=== PATIENT | male | born 1965 | race Caucasian/White ===

== ENCOUNTER 2019-07-05 18:07 | Inpatient (IN) | payer OTHER ==
[~2019-07-05] VITALS: Ht 185.4 cm; Wt 74.8 kg
[2019-07-05 18:08] VITALS: BP 128/74
[2019-07-05 18:37] LABS: HEMATOCRIT 43.8 % (42.0-52.0); HEMOGLOBIN 15.1 gm/dL (14.0-18.0); MCH 32.5 pg (26.0-34.0); MCHC 34.4 g/dL (28.0-37.0); MCV 94.5 fL (80.0-100.0); PLATELET COUNT 191 thou/uL (150-400); RBC 4.63 mil/uL (4.50-6.00); RDW 14.1 % (10.5-14.5); WBC 5.8 thou/uL (4.0-11.0)
[2019-07-05 18:41] LABS: ANION GAP 8 mmol/L (7-16); BUN 8 mg/dL (7-18); CALCIUM 8.6 mg/dL (8.5-10.1); CHLORIDE 105 mmol/L (98-107); CO2 26 mmol/L (21-32); CREATININE 0.9 mg/dL (0.7-1.3); GLUCOSE 97 mg/dL (74-106); POTASSIUM 3.3 mmol/L (3.5-5.1); SODIUM 139 mmol/L (136-145)
[2019-07-05 18:52] LABS: ALBUMIN 3.4 g/dL (3.4-5.0); DIRECT BILIRUBIN < 0.1 mg/dL (<0.1-0.3); MAGNESIUM 1.8 mg/dL (1.8-2.4); SGOT 18 U/L (15-37); SGPT 10 U/L (30-65); TOTAL BILIRUBIN 0.6 mg/dL (<0.1-1.0); TOTAL PROTEIN 7.3 g/dL (6.4-8.2); TROPONIN-I <0.06 ng/mL (<0.06)
[2019-07-05 18:53] LABS: APTT 27.1 Seconds (24.5-32.8); INR 1.1; PROTIME 11.3 Seconds (9.3-11.4)
[2019-07-05 19:13] LABS: ABSOLUTE NEUTROPHILS 4.4 thou/uL (1.4-8.2)
[2019-07-05 19:14] LABS: PLATELET ESTIMATE NORMAL
[2019-07-05 20:31] LABS: URINE BILIRUBIN NEGATIVE (Negative); URINE BLOOD TRACE (Negative); URINE CLARITY CLEAR; URINE COLOR YELLOW; URINE GLUCOSE-RANDOM* NEGATIVE (Negative); URINE KETONES NEGATIVE (Negative); URINE LEUKOCYTES-REFLEX NEGATIVE (Negative); URINE NITRITE-REFLEX NEGATIVE (Negative); URINE PROTEIN (DIPSTICK) 3+ (Negative); URINE SPECIFIC GRAVITY >= 1.030 (1.005-1.035)
[2019-07-05 20:39] LABS: AMP/METHAMP Negative (Negative); BARBITURATES Negative (Negative); BENZODIAZEPINES Negative (Negative); COCAINE Negative (Negative); METHADONE Negative (Negative); OPIATES Negative (Negative); PCP Negative (Negative)
[2019-07-05 20:43] LABS: BACTERIA-REFLEX None Seen /HPF (None Seen); CRYSTALS None Seen /LPF (None Seen); FINE GRANULAR CASTS 0-3 Few /LPF (None Seen); HYALINE CASTS 0-3 Few /LPF (None Seen); MUCUS >6 Heavy strn/LPF (None Seen); SQUAMOUS 0-3 Few /LPF (0-3); URINE RBC 0-2 Rare /HPF (0-2); URINE WBC-REFLEX 0-5 Rare /HPF (0-5)
[2019-07-06] VITALS (47 sets, daily range): BP systolic 54–144; BP diastolic 16–98
[2019-07-06 03:52] LABS: BE(vivo) -4.3 mmol/L (-2 to +3); HCO3 18.9 mmol/L (22.0-26.0); PCO2 30.3 mmHg (35.0-45.0); PO2 64.8 mmHg (80.0-100.0); pH 7.412 (7.360-7.450); sO2 93.2 % (92.0-98.0)
[2019-07-06 04:36] LABS: HEMATOCRIT 44.5 % (42.0-52.0); HEMOGLOBIN 15.1 gm/dL (14.0-18.0); MCH 32.6 pg (26.0-34.0); MCHC 33.9 g/dL (28.0-37.0); MCV 96.3 fL (80.0-100.0); RBC 4.63 mil/uL (4.50-6.00); RDW 14.2 % (10.5-14.5); WBC 14.2 thou/uL (4.0-11.0)
[2019-07-06 04:47] LABS: CHOLESTEROL 93 mg/dL (<200); HDL CHOLESTEROL 18 mg/dL (>40); LDL CHOLESTEROL 60 mg/dL (<100); SERUM ASSESSMENT Clear; TC:HDL 5.2 Ratio (Not establshd); TRIGLYCERIDE 79 mg/dL (<150); VLDL 16 mg/dL (<40)
--- NOTE | 2019-07-06 07:53 | EKG ---
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 : 1965 Requested By: Reyna Trejo Order Number: [id number] MD: Parag Osborn Measurements Intervals [place] Rate: 82 P: CT: QRS: 72 QRSD: 102 T: 128 QT: 392 QTc: 458 Interpretive Statements Sinus rhythm with frequent premature ventricular complexes Anterolateral myocardial infarction, age indeterminate Compared to ECG 05/30/2008 07:05:56 Ventricular premature complex(es) now present Evolutionary changes of an anterolateral infarct Electronically Signed On 07-06-2019 7:52:54 CDT by Parag Osborn [email or web address] <ELECTRONICALLY SIGNED> By: Parag Osborn MD, [facility] 07/06/19 0752 1814 1814 Parag Osborn MD, [facility] /EPI
--- NOTE | 2019-07-06 08:01 | NUR ---
PATIENT ADMITTED FROM ED DEPARTMENT, ALERT YET FORGETFUL AT TIMES. NO COMPLAINTS OF PAIN. SINUS RHYTHM WITH PAC/PVC ON DIE TRIMMER. ON 6L NASAL CANNULA, WHICH IS HOME BASELINE. WOUNDS TO LOWER EXTREMITIES, PHOTOS TAKEN. PATIENT NPO. AMIODARONE AND LEVOFED DRIP FOR SUPPORT DUE TO DECREASED BLOOD PRESSURE. PATIENT HAD AN EPISODE AT 0300 WITH (NAUSEA/DIAPHORESIS/HYPOTENTION), NURSE PRACTITIONER NOTIFIED WITH NEW ORDERS. NO SIGNS OF ACUTE DISTRESS NOTED AT THIS TIME. WILL CONTINUE TO MONITOR.
--- NOTE | 2019-07-06 09:51 | 2DMMODE ---
[facility] [address] [place] [address] 2 D/M-MODE ECHOCARDIOGRAM Name: LEVAR TIERNEY Room #: 238-P ADM IN M.R.#: [id number] Admission: 07/06/19 Attend Phys: Rd Baumann MD Discharge: Date of : 67 Date of Service: 07/06/19 0951 Report #: [id number] THIS REPORT FOR: //name// APPROVED REPORT Study performed: 07/06/2019 08:44:11 EXAM: Comprehensive 2D, Doppler, and color-flow Echocardiogram Patient Location: ICU Room #: 238 Status: routine BSA: 1.96 HR: 75 bpm BP: 121/69 mmHg Rhythm: Pacemaker Other Information Study Quality: Good Indications ICD: Diabetes Hypertension/HDD 2D Dimensions RVDd: 49.98 mm IVSd: 9.83 (7-11mm) LVOT Diam: 24.87 (18-24mm) LVDd: 60.15 mm PWd: 10.46 (7-11mm) Ascending Ao: 33.62 (22-36mm) LVDs: 54.55 (25-40mm) Aortic Root: 33.98 mm IVC: 29.00 mm Volumes Left Atrial Volume (Systole) Single Plane 4CH: 55.51 mL Single Plane 2CH: 87.21 mL LA ESV Index: 41.00 mL/m2 Aortic Valve AoV Peak Geovani.: 0.90 m/s AO Peak Gr.: 3.21 mmHg LVOT Max P.99 mmHg LVOT Max V: 0.71 m/s GAMA Vmax: 3.82 cm2 Mitral Valve E/A Ratio: 0.7 [facility] [address] [place] [address] 2 D/M-MODE ECHOCARDIOGRAM Name: LEVAR TIERNEY Room #: 238-[facility] IN [facility].#: [id number] Admission: 07/06/19 Attend Phys: Rd Baumann MD Discharge: Date of : 67 Date of Service: 07/06/19 0951 Report #: [id number] MV Decel. Time: 132.88 ms MV E Max Geovani.: 0.54 m/s MV A Geovani.: 0.74 m/s MV PHT: 38.53 ms IVRT: 179.93 ms Pulmonary Valve PV Peak Geovani.: 0.66 m/s PV Peak Gr.: 1.75 mmHg Tricuspid Valve TR Peak Geovani.: 2.87 m/s TR Peak Gr.: 33.04 mmHg PA Pressure: 48.00 mmHg Left Ventricle Left ventricle is dilated. There is severe global hypokinesis of the left ventricle. There is normal left ventricular wall thickness. Left ventricular ejection fraction is severely decreased. LVEF is 15-20%. The left ventricular diastolic function is abnormal. Right Ventricle Right ventricle is dilated. Right ventricle is hypokinetic. Atria Left atrium is dilated. Right atrium is dilated. Aortic Valve The aortic valve is normal in structure. No aortic regurgitation is present. There is no aortic valvular stenosis. Mitral Valve The mitral valve is normal in structure. Mild mitral regurgitation. No evidence of mitral valve stenosis. Tricuspid Valve The tricuspid valve is normal in structure. There is mild tricuspid regurgitation. Estimated PAP 48 mmHg. There is moderate pulmonary hypertension. Pulmonic Valve The pulmonary valve is normal in structure. There is no pulmonic valvular regurgitation. Great Vessels The aortic root is normal in size. The inferior vena cava is dilated [facility] [address] [place] [address] 2 D/M-MODE ECHOCARDIOGRAM Name: LEVAR TIERNEY Room #: 238-P ADM IN M.R.#: [id number] Admission: 07/06/19 Attend Phys: Rd Baumann MD Discharge: Date of : 67 Date of Service: 07/06/19 0951 Report #: [id number] with no inspiratory collapse. Pericardium There is no pericardial effusion. <Conclusion> Left ventricle is dilated. Left ventricular ejection fraction is severely decreased. LVEF is 15-20%. There is severe global hypokinesis of the left ventricle. Right ventricle is dilated. Right ventricle is hypokinetic. Left atrium is dilated. Right atrium is dilated. The aortic valve is normal in structure. The mitral valve is normal in structure. Mild mitral regurgitation. The tricuspid valve is normal in structure. There is mild tricuspid regurgitation. Estimated PAP 48 mmHg. There is moderate pulmonary hypertension. The pulmonary valve is normal in structure. There is no pericardial effusion. <ELECTRONICALLY SIGNED> By: Angelo Bradford MD 07/06/1950 Angelo Bradford MD /INF
[2019-07-06 11:04] LABS: CALCIUM 8.5 mg/dL (8.5-10.1); MAGNESIUM 1.7 mg/dL (1.8-2.4); POTASSIUM 3.5 mmol/L (3.5-5.1); TROPONIN-I 0.1 ng/mL (<0.06)
[2019-07-07] VITALS (13 sets, daily range): BP systolic 106–146; BP diastolic 48–89
[2019-07-07 05:15] LABS: HEMATOCRIT 39.9 % (42.0-52.0); HEMOGLOBIN 13.7 gm/dL (14.0-18.0); MCH 32.5 pg (26.0-34.0); MCHC 34.3 g/dL (28.0-37.0); MCV 94.8 fL (80.0-100.0); RBC 4.21 mil/uL (4.50-6.00); RDW 13.9 % (10.5-14.5)
[2019-07-07 05:26] LABS: CALCIUM 8.3 mg/dL (8.5-10.1); MAGNESIUM 1.5 mg/dL (1.8-2.4)
[2019-07-07 05:32] LABS: PLATELET COUNT 153 thou/uL (150-400)
--- NOTE | 2019-07-07 05:56 | NUR ---
PATIENTS CARES WERE ASSUMED AT APPROX 2110 DUE TO HE WAS A TRANSFER OUT OF ICU. PATIENT WAS ASSESSED AND MEDS WERE PASSED. PATIENTS ONLY C/O UNABLE TO SLEEP AND HE IS GOING HOME TOMORROW 07/07/19. CONSULT PLACED FOR THE DRY CELL SEALER TO HELP HIM GET HIS MEDICATIONS AND O2. PATIENT REMAINS ON 6L NC. HOURLY ROUNDING WAS DONE. THE BED IS IN A LOW AND LOCKED POSITION
[2019-07-07 06:58] LABS: ABSOLUTE NEUTROPHILS 6.1 thou/uL (1.4-8.2)
[2019-07-07 06:59] LABS: PLATELET ESTIMATE NORMAL
[2019-07-07 16:14] LABS: CALCIUM 8.1 mg/dL (8.5-10.1); CREATININE 1.1 mg/dL (0.7-1.3); MAGNESIUM 1.6 mg/dL (1.8-2.4); POTASSIUM 3.6 mmol/L (3.5-5.1); TOTAL BILIRUBIN 0.9 mg/dL (<0.1-1.0); TOTAL PROTEIN 6.9 g/dL (6.4-8.2)
--- NOTE | 2019-07-07 16:56 | CATHLAB ---
[facility] [address] [place] [address] INVASIVE PROCEDURE REPORT Name: LEVAR TIERNEY Room #: 211-P [facility] IN ..#: [id number] Admission: 07/05/19 Attend Phys: Rd Baumann MD Discharge: Date of : 67 Date of Service: 07/07/19 1656 Report #: [id number] THIS REPORT FOR: //name// APPROVED REPORT Study performed: 07/07/2019 10:37:46 Patient Details The patient is a 54 year-old male Event Personnel Amaury Gonzales Can Piler, Sandy Zarate RN, Pop Lopez RTR Scrub, Lavonne Colin RTR Monitor, Deonna Meyer RTR, CIGAR HEAD STRINGER Monitor, María Elena Huratdo RTR Scrub Procedures Performed Left Heart Cath w/or w/o Coronaries [id number] [facility] Indication Arrhythmia, The patient presented with multiple ventricular tachycardias episodes. Has a prior history of cardiomyopathy and GA. Risk Factors Peripheral Vascular Disease, Hypercholesterolemia, Coronary Artery DiseaseHypertension Previous Procedures/Diagnoses Previous PCI, Previous GA Procedure Narrative The Right Groin^ was infiltrated with 2% Lidocaine subcutaneous anesthesia. A PINNACLE 4FR Sheath #[id number] sheath was inserted into the RFA 4 fr^. Coronary angiography was performed using coronary diagnostic catheters. The right coronary system was accessed and visualized with a JR4 catheter. The left coronary system was accessed and visualized with a JL4 catheter. The left ventricle was accessed and visualized with a Pigtail catheter. Hemostasis was obtained with manual pressure following sheath removal without any complications. The patient tolerated the procedure well and there were no complications associated with the procedure. There was no hematoma. Intraoperative Conscious Sedation [facility] [address] [place] [address] INVASIVE PROCEDURE REPORT Name: LEVAR TIERNEY Room #: [facility] IN ..#: [id number] Admission: 07/05/19 Attend Phys: Rd Baumann MD Discharge: Date of : 67 Date of Service: 07/07/19 1656 Report #: [id number] Sedation start time: 1108 Case end Time: 1145 Fentanyl 50 mcg Versed 1 mg Fluoro Time: 3.28 minutes Dose: DAP 5147.80 cGycm2 646 mGy Contrast Type and Amount: Visipaque 90 ml Coronary Angiography The patient's coronary anatomy is co- dominant. Diagnostic Cath Left Main Large-caliber vessel, with no flow-limiting lesions. LAD This is a moderate size caliber vessel, traversing the anterior wall and wrapping around the apex. Circumflex This is a codominant vessel, with mild disease in the mid segment. There are 2 marginals originating off the distal left circumflex artery. OM1 There is a patent vessel, with no flow-limiting lesions. OM2 There is a patent vessel, with no flow-limiting lesions. Right Coronary There is moderate diffuse disease in the proximal segment, 40%. R PDA There is a stent in the proximal segment, patent with minimal restenosis. Ramus There is a stent in the proximal segment with a total occlusion, appears chronic. Left Ventriculography The left ventricle is moderately dilated in size with abnormal contractility. The left ventricular ejection fraction is estimated to be 15%. Hemodynamics The aortic pressure is 116/73 mmHg with a mean of 96 mmHg. The left ventricular pressure is 105/22 mmHg with a mean of mmHg. The left ventricular end diastolic pressure is 25 mmHg. Conclusion 1. Severe, dilated cardiomyopathy- probable mixed type. 2. 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 3. There is a patent stent in the PDA. [facility] [address] [place] [address] INVASIVE PROCEDURE REPORT Name: KELSYLEVARJORGE SOUZA Room #: 211-P [facility] IN M.R.#: [id number] Admission: 07/05/19 Attend Phys: Rd Baumann MD Discharge: Date of : 67 Date of Service: 07/07/191655 Report #: [id number] 4. Moderate disease in the RCA. 5. Recommend aggressive risk factor management. <ELECTRONICALLY SIGNED> By: Amaury Gonzales MD 07/07/191655 55 55 Amaury Gonzales MD /INF
--- NOTE | 2019-07-07 18:19 | NUR ---
PT CARE ASSUMED APPROX 0700. PT ALERT AND ORIENTED X4. DENIES PAIN AND SOA. VSS. HAD CARDIAC CATH THIS SHIFT WITHOUT INTERVENTION. RIGHT GROIN POST CATH SITE C/D/I AND FREE OF HEMATOMA. PT HAD AN EPISODE OF ASYMPTOMATIC VTACH THIS AM. NO OTHER EPISODES REPORTED TO THIS NURSE. AMIO GTT AT 1MG/MIN REMAINS TO POC AND PO AMIO ADDED. PT TOLERATING POC. POST CATH VSS. APPETITE GOOD. UP TO SIDE OF BED FOR MEALS. LEFT SIDED WEAKENESS IS SIGNIFICANT. NO TRANSFERS TO CHAIR PERFORMED FOR THIS REASON. POST CATH NS INFUSING AT THIS TIME. IV ABT REMAINS TO POC. LAC IV INFILTRATED WITH AMIO RUNNING. PIV DC'D BUT LAC RED AND SORE. PT REFUSED COLD THERAPY. AWARE. PIV SITE ROTATED X2. PT DENIES QUESTIONS REGARDING POC. INDEPENDENT IN THE BED. NO DISTRESS NOTED.
--- NOTE | 2019-07-07 18:33 | NUR ---
ASSUMED PT CARE AT 1030. PT A&O X4. FALL PRECAUTIONS IN PLACE. ASSESSMENT CHARTED. PT'S VITAL SIGNS ARE STABLE. PT STATED HE HAD ZERO OUT OF TEN PAIN. PT'S RIGHT GROIN SITE IS CLEAN, DRY, AND INTACT. NO HEMATOMA PRESENT. NO BLEEDING PRESENT. FAMLY VISITED WITH PT. FAMILY EDUCATED ON PT'S STATUS, PT COMMUNICATED UNDERSTANDING. PT RECIEVED 6 HRS OF NORMAL SALINE 100 MLS/HR. PT COMPLETED 6 HRS AT 1800. PT COMPLETED POST-CATH VITAL SIGNS AT 1515. ASSESSED PT'S GAIT. GAIT IS STABLE AND IS BALANCED.
[2019-07-08] VITALS (9 sets, daily range): BP systolic 98–129; BP diastolic 52–75
[2019-07-08 04:49] LABS: HEMATOCRIT 39.5 % (42.0-52.0); HEMOGLOBIN 13.6 gm/dL (14.0-18.0); MCH 32.9 pg (26.0-34.0); MCHC 34.4 g/dL (28.0-37.0); MCV 95.4 fL (80.0-100.0); RBC 4.14 mil/uL (4.50-6.00); WBC 10.1 thou/uL (4.0-11.0)
[2019-07-08 05:07] LABS: CALCIUM 8.3 mg/dL (8.5-10.1); CREATININE 0.9 mg/dL (0.7-1.3); MAGNESIUM 1.6 mg/dL (1.8-2.4); POTASSIUM 3.5 mmol/L (3.5-5.1)
--- NOTE | 2019-07-08 07:30 | NUR ---
ASSUE CARE 1900. PT/VITALS STABLE. DENIES PAIN. MODERATELY TOLERATES ACTIVTIY. ASSESSMENT CHARTED. PROGRESSING WELL WITH POC. PLAN IS TO CONTINUE WITH AMIO DRIP AND MONITOR HR AND RHYTHM. WILL CONTINUE TO MONITOR AND FOLLOW WITH POC.
[2019-07-08] MEDS ORDERED: COREG3.125 MG PO (10:56)
[2019-07-08] MEDS ORDERED: ASPIRIN325 PO (10:56)
[2019-07-08] MEDS ORDERED: PACERONE 200 M200 M1 PO (10:56)
--- NOTE | 2019-07-08 12:01 | NUR ---
FAXED FACE SHEET TO [employer] TO HELP WITH MEDICAID APPLICATION FOR SECONDARY INSURANCE. DCP TO FOLLOW.
--- NOTE | 2019-07-08 16:03 | NUR ---
Case opened to follow for dc planning. Possible dc home tomorrow per the care team. Roaster Operator visited with the pt at bedside and his exwife Amy via phone. He reports his ex and his adult son live with him and help care for him. He has a w/c at home with a ramped entrance. He has had home o2 in the past,but states [employer] picked it up a while ago. He is currently on 6liters which he reports was his baseline prior. He reports that he had medicaid in the past but it is not active anymore. He has not been able to afford his medications. He also has a new pcp Dr. Cliff Adhikari. He and Amy are asking for help with a ride home as their car is broken down, as well as medication assistance. Case discussed with the care team. The pt does not want to use [employer] again for o2. Referrals sent to [facility] [place] for o2 and PSYCHIATRICS for hh as they go to [place]. [facility] w/c van transport arranged for tomorrow with a 12:30pm pickup time. Should the pt's dc be canceled please call them to cancel [phone]. [facility] [place] is bringing a portable tank for the ride home. He will need to call them when he arrives home to setup his concentrator. [facility] can accept for hh f/u. Orders will need to be faxed to [phone] and the oncall nurse notified [phone]. His scripts are filled and vouchered by cm to facilitate dc. They are locked in the med room this afternoon per nursing. Pt's najera being dc'd today in anticipation of dc tomorrow. He is agreeable to the above noted arrangements. All parties updated.
--- NOTE | 2019-07-08 16:10 | NUR ---
FAXED REFERRAL TO [facility] FOR HOME O2 SPOKE WITH IVAN IN INTAKE SHE RECEIVED REFERRAL AND DCP TO FAX QUALIFYING O2 SAT ONCE AVAILABLE. AARON FROM [facility] IS BRINGING O2 TANK FOR PT TO DISCHARGE HOME WITH. DCP TO FOLLOW.
--- NOTE | 2019-07-08 17:22 | NUR ---
PT RA O2 SAT IS 84%. REQUIRING 5-6L PER NC AT THIS TIME TO KEEP O2 SATS ABOVE 92%
--- NOTE | 2019-07-08 17:58 | NUR ---
PT CARE ASSUMED APPROX 0700. PT ALERT AND ORIENTED X4. DENIES PAIN AND SOA. VSS. PT TO CHAIR FOR MOST OF DAY. TOLERATING. TRANSFERS MOD ASSIST X1. PIV TO UPPER RIGHT ARM INFILTRATED. AREA WHERE PIV INFILTRATED YESTERDAY TO RAC RED, WARM, SWOLLEN AND PAINFUL MORESO THAN YESTERDAY. DR CORDERO AND RADHA WATSON SALON DESIGNER NOTIFIED. PIV D/C'D AND AMIO WAS ROTATED TO SITE THAT WAS C/D/I. IV ABT REMAINS TO POC. AMIO STOPPED THIS EVENING. URINARY CATH REMOVED PER ORDER WITHOUT ISSUE. WILL MONITOR URINE OUTPUT. PT COMPLIANT WITH FLUID RESTRICTION. CASE MANAGEMENT ASSISTED PT IN OBTAINING MEDS AND HOME 02. MEDS LOCKED IN MED ROOM. WILL SUPPLY PT WITH THEM UPON DISCHARGE. THIS INFO WILL BE PASSED TO NOC NURSE TO REPORT TO DAY NURSE. RA SAT OBTAINED FOR O2 ORDERING PURPOSES (SEE PREVIOUS NOTE.) MAG REPLACED THIS SHIFT. WILL MONITOR LAB. NO DISTRESS NOTED.
--- NOTE | 2019-07-09 04:17 | NUR ---
Pt. rested quietly at short intervals during the night when checked on during frequent rounds. He c/o insomnia and prn benadryl given (see emar) with some relief noted. he offers no c/o pain. Voiding since najera catheter was re- moved. Bed alarm is on.
[2019-07-09 05:30] LABS: CALCIUM 8.4 mg/dL (8.5-10.1); CREATININE 0.9 mg/dL (0.7-1.3); MAGNESIUM 1.7 mg/dL (1.8-2.4); POTASSIUM 3.2 mmol/L (3.5-5.1)
[2019-07-09 05:36] VITALS: BP 117/64
[2019-07-09 08:31] VITALS: BP 117/73
[2019-07-09 11:44] VITALS: BP 94/58
[2019-07-09] MEDS ORDERED: MAGOX 400400 MG PO (12:01)
[2019-07-09] MEDS ORDERED: MELATONIN5 M1 PO (12:01)
[2019-07-09] MEDS ORDERED: CEFUROXIME500 MG PO (12:01)
[2019-07-09] MEDS ORDERED: POTASSIUM20 PO (12:01)
[2019-07-09] MEDS ORDERED: MUCINEX600 MG PO (12:01)
[2019-07-09] MEDS ORDERED: LASIX 40 MG TAB40 M1 PO (12:01)
[2019-07-09 12:24] VITALS: BP 101/59
--- NOTE | 2019-07-09 13:24 | NUR ---
PT CARE ASSUMED APPROX 0700. PT ALERT AND ORIENTED X4. DENIED PAIN AND SOA. VSS. HRR. PT DISCHARGED AT THIS TIME. PAPERWORK REVIEWED WITH PT BUT SPOUSE-CARL WAS EDUCATED OVER THE PHONE ON ALL MEDS & MED BOTTLES ARRIVING WITH THE PT BACK TO HER HOUSE, DIET, ACTIVITY, F/U APPTS, AND GENERAL POST HOSPITAL CARES. IT WAS ALSO REITERATED SOME OF THE EDUCATION THAT CASE MANAGEMENT HAS BEEN DOING SINCE PT ADMISSION. PT PICKED UP FROM ROOM BY MEDICAL TRANSPORTATION. O2 TANK AND ALL BELONGINGS TRANSPORTED WITH PT. IV OUT, TELE BOX OFF. NO DISTRESS NOTED.
== END 2019-07-09 13:34 | disposition home health service (06) | DRG 286 ==
LOC: ER 18:07 → EROBS 22:55 → 2N 22:55 → ER 07-06 00:09 → ICU 07-06 00:09 → EROBS 07-06 00:09 → ICU 07-06 01:01 → EROBS 07-06 01:05 → ICU 07-06 01:05 → 2N 07-06 20:45 → ICU 07-06 20:45 → 2N 07-09 13:34
PROVIDERS: Emergency Medicine; Internal Medicine Cardiovascular Disease; Nurse Practitioner; Nurse Practitioner Acute Care; ADMIT Internal Medicine
PROC: B211YZZ Fluoroscopy of Multiple Coronary Arteries using Other Contrast (ICD-10-PCS; principal; 2019-07-07)
PROC: B2151ZZ Fluoroscopy of Left Heart using Low Osmolar Contrast (ICD-10-PCS; principal; 2019-07-07)
PROC: 4A023N7 Measurement of Cardiac Sampling and Pressure, Left Heart, Percutaneous Approach (ICD-10-PCS; principal; 2019-07-07)
DX: I49.01 Ventricular fibrillation (principal); I50.23 Acute on chronic systolic (congestive) heart failure; J18.9 Pneumonia, unspecified organism; G92 Toxic encephalopathy; I69.354 Hemiplegia and hemiparesis following cerebral infarction affecting left non-dominant side; J96.11 Chronic respiratory failure with hypoxia; I25.10 Atherosclerotic heart disease of native coronary artery without angina pectoris; I11.0 Hypertensive heart disease with heart failure; K21.9 Gastro-esophageal reflux disease without esophagitis; E78.5 Hyperlipidemia, unspecified; E11.9 Type 2 diabetes mellitus without complications; I47.2 Ventricular tachycardia; E87.70 Fluid overload, unspecified; E87.6 Hypokalemia; J44.9 Chronic obstructive pulmonary disease, unspecified; I25.5 Ischemic cardiomyopathy; E83.42 Hypomagnesemia; G47.33 Obstructive sleep apnea (adult) (pediatric); Z79.82 Long term (current) use of aspirin; Z95.5 Presence of coronary angioplasty implant and graft; I25.2 Old myocardial infarction; Z90.49 Acquired absence of other specified parts of digestive tract; Z82.49 Family history of ischemic heart disease and other diseases of the circulatory system; Z79.899 Other long term (current) drug therapy
CPT/HCPCS: 10081

== ENCOUNTER 2019-07-13 13:20 | Emergency (ER) | payer OTHER ==
[~2019-07-13] VITALS: Ht 185.4 cm; Wt 69.4 kg
[~2019-07-13 13:20] MED LIST: ASPIRIN325 PO; CEFUROXIME500 MG PO; COREG3.125 MG PO; LASIX 40 MG TAB40 M1 PO; MAGOX 400400 MG PO; MELATONIN5 M1 PO; MUCINEX600 MG PO; PACERONE 200 M200 M1 PO; POTASSIUM20 PO
[2019-07-13 14:28] LABS: WBC 12.8 thou/uL (4.0-11.0)
[2019-07-13 14:30] LABS: HEMATOCRIT 40.1 % (42.0-52.0); HEMOGLOBIN 13.6 gm/dL (14.0-18.0); MCH 32.7 pg (26.0-34.0); MCV 96.2 fL (80.0-100.0); RBC 4.17 mil/uL (4.50-6.00); RDW 13.5 % (10.5-14.5)
[2019-07-13 14:34] LABS: POTASSIUM 3.6 mmol/L (3.5-5.1)
[2019-07-13 14:41] LABS: TOTAL BILIRUBIN 0.5 mg/dL (<0.1-1.0); TOTAL PROTEIN 7.5 g/dL (6.4-8.2)
[2019-07-13 14:49] LABS: ABSOLUTE NEUTROPHILS 8.7 thou/uL (1.4-8.2)
[2019-07-13 14:50] LABS: ANISOCYTOSIS 1+; PLATELET COUNT 233 thou/uL (150-400)
[2019-07-13 16:20] VITALS: BP 115/66
== END 2019-07-13 17:30 | disposition home or self-care (01) ==
LOC: ER 13:20
PROVIDERS: Physician Assistant
DX: R56.9 Unspecified convulsions (principal); K21.9 Gastro-esophageal reflux disease without esophagitis; I10 Essential (primary) hypertension; E78.5 Hyperlipidemia, unspecified; G47.30 Sleep apnea, unspecified; G25.81 Restless legs syndrome; J44.9 Chronic obstructive pulmonary disease, unspecified; Z95.5 Presence of coronary angioplasty implant and graft; Z90.49 Acquired absence of other specified parts of digestive tract; Z90.89 Acquired absence of other organs

== ENCOUNTER 2019-07-13 18:25 | Emergency (ER) | payer OTHER ==
[~2019-07-13] VITALS: Ht 185.4 cm; Wt 68.0 kg
[2019-07-13 21:01] VITALS: BP 117/65
== END 2019-07-13 21:03 | disposition left against medical advice (07) ==
LOC: ER 18:25
DX: R56.9 Unspecified convulsions (principal); K21.9 Gastro-esophageal reflux disease without esophagitis; I10 Essential (primary) hypertension; E78.5 Hyperlipidemia, unspecified; G47.30 Sleep apnea, unspecified; G25.81 Restless legs syndrome; Z90.49 Acquired absence of other specified parts of digestive tract; Z86.73 Personal history of transient ischemic attack (TIA), and cerebral infarction without residual deficits; Z95.5 Presence of coronary angioplasty implant and graft